=== PATIENT | male | born 1975 | race Caucasian/White ===

== ENCOUNTER 2018-12-05 03:15 | Emergency (ER) | payer SELFPAY ==
[2018-12-05 03:33] VITALS: RESP 18
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
[2018-12-05 05:44] VITALS: BP 118/78; PULSE 82; TEMP 98.2; O2SAT 97
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
--- NOTE | 2018-12-05 12:55 | CARD ---
APPROVED REPORT Date of service: 12/05/2018 EKG Measurement Heart [id number] FL [id number] [id number] <Conclusion> Normal sinus rhythm Normal ECG
== END 2018-12-05 05:56 | disposition home or self-care (01) ==
LOC: H.ER 03:15
DX: S22.42XA Multiple fractures of ribs, left side, initial encounter for closed fracture (principal); Y04.0XXA Assault by unarmed brawl or fight, initial encounter; Y92.89 Other specified places as the place of occurrence of the external cause